=== PATIENT | male | born 1935 | race Caucasian/White ===

== ENCOUNTER → 2017-08-18 | Day surgery (SDC) | payer MEDICARE, OTHER ==
[~2017-08-18] VITALS: Ht 177.8 cm; Wt 94.2 kg
[~2017-08-18] MED LIST: AMLO2.5T PO; AMOX500C PO; BACITRACIN TOP OINT 15 GM TUBE ONE; BUPIVACAINE/EPINEPHRINE 0.25% 50 ML VIAL ONE; CHLORHEXIDINE GLUCONATE 2 % 1 PACK (2 CLOTHS) TOPICAL PRN; DO NOT ADM ANY ANTICOAGULANT DRUGS PRN; INSULIN HUMAN REGULAR 1,000 UNITS/10 ML VIAL SQ PRN; LACTATED RINGER'S 1000 ML IV PRN; LIDOCAINE HCL 1% PF 5 ML SYRINGE OTHER ONE; LIPI40TA PO; LOSA100T PO; METOPROLOL TARTRATE 25 MG TAB PO PRN; ONDANSETRON HCL 4 MG/2 ML VIAL IV PUSH ONE; PHENYLEPH/NS 1000 MCG/10 ML SYR IV ONE; POVIDONE IODINE 5% (ANTISEPSIS KIT) 4 APPLICATIONS EACH NARE PRN; PROPOFOL 200 MG/20 ML AMP IV ONE; PROT40TA PO; SODIUM CHLORID 0.9% 500 ML IV PRN; TAMS5CAP PO; TOPR50TA PO; ceFAZolin 1,000 MG/NS 100 ML IV SCH; ePHEDrine/NS 25 MG/5 ML SYRINGE IV ONE
[2017-08-18 13:25] VITALS: BP 127/72; PULSE 69; RESP 18; TEMP 97.7; O2SAT 95
--- NOTE | 2017-08-18 18:44 | EKG ---
Date Performed: 08/18/2017 Time Performed: 10:11:01 PTAGE: 82 years EKG: Sinus rhythm NORMAL ECG NO PREVIOUS TRACING DOCTOR: Luis M Grubbs Interpretating Date/Time 08/18/2017 18:41:31
--- NOTE | 2017-08-24 10:35 | PD.OP ---
Operative Report Date of Surgery: Aug 22, 2017 Preoperative Diagnosis: (1) Basal cell carcinoma of right ear Postoperative Diagnosis: (1) Basal cell carcinoma of right ear Procedure: Wide local excision of right auricular basal cell carcinoma, 12 mm (00477) Surgeon: Fabrizio Chung Apparel Sales Associate(s): . Operation and Findings: 82-year-old male who presented to clinic with biopsy-proven right auricular basal cell carcinoma. Risks benefits and alternative treatments discussed. All questions answered and patient and patient's expressed understanding. Patient elected to assume the risks of wide local excision of above. Informed consent was obtained. The surgical site was marked in the preoperative holding bay. The patient was given antibiotics on-call to the operating room. The patient was taken to the operating room. All pressure points were padded. A surgical timeout was performed. After the smooth induction of general anesthesia, the biopsy site was outlined with 4 mm margins. The surgical site was instilled with quarter percent Marcaine with epinephrine. The surgical site was prepped and draped in the usual sterile fashion. The lesion was excised according to the markings. This left a defect of 12 mm. Hemostasis was ensured. The lesion was marked for orientation, and sent to pathology. Frozen pathology showed negative margins. The wound was dressed with bacitracin Xeroform gauze dry gauze and a Roslyn dressing. The patient was awoken from anesthesia and arrived stable and doing well to the PACU. All needle sponge and instrument counts were correct 2. Fabrizio Chung MD Aug 24, 2017 10:35
== END | disposition home or self-care (01) ==
LOC: HSDC 09:22
PROVIDERS: ATTEND Student in an Organized Health Care Education/Training Program
DX: C44.212 Basal cell carcinoma of skin of right ear and external auricular canal (principal); I10 Essential (primary) hypertension; E78.5 Hyperlipidemia, unspecified
CPT/HCPCS: 00300; 11642; 88305; 88331; 93005; J0690; J2370; J2405

== ENCOUNTER → 2017-08-25 | Day surgery (SDC) | payer MEDICARE, OTHER ==
[~2017-08-25] VITALS: Ht 177.8 cm; Wt 93.0 kg
[~2017-08-25] MED LIST changes: +ACETAMINOPHEN 1000 MG/100 ML 100 ML IV ONE; +ACETAMINOPHEN/HYDROcodone 325 MG/5 MG TAB PO PRN; -BUPIVACAINE/EPINEPHRINE 0.25% 50 ML VIAL ONE; +BUPIVACAINE/EPINEPHRINE 0.75% PF 30 ML VIAL ONE; +DEXAMETHASONE SOD PHOS 4 MG/ML VIAL IV ONE; -INSULIN HUMAN REGULAR 1,000 UNITS/10 ML VIAL SQ PRN; +LIDOCAINE 1%/EPINEPHrine 1:100,000 SOLN 50 ML VIAL ONE; +MINERAL OIL 10 ML VIAL ONE; +NEOMYCIN/POLYMYXIN 1 ML G.U. IRRIGANT ONE; +ONDANSETRON HCL 4 MG/2 ML VIAL IV ONE; -ONDANSETRON HCL 4 MG/2 ML VIAL IV PUSH ONE
[2017-08-25 17:35] VITALS: BP 146/77; PULSE 74; RESP 18; TEMP 98.7; O2SAT 94
--- NOTE | 2017-08-30 19:19 | PD.OP ---
Operative Report Date of Surgery: Aug 25, 2017 Preoperative Diagnosis: (1) Ear wound Postoperative Diagnosis: (1) Ear wound Procedure: Full-thickness skin graft from right postauricular area to right triangular fossa ((40841) Surgeon: Fabrizio Chung [employer] Production Worker(s): . Operation and Findings: 82-year-old male who presented to clinic with a right ear wound involving the triangular fossa status post skin lesion wide local excision. Risks benefits and alternative treatments for closure of the wound were discussed. The patient elected to assume the risks of a full-thickness skin graft from the right postauricular region to the right triangular fossa. Informed consent was obtained. The surgical site was marked in the preoperative holding bay. Antibiotics were given on-call to the operating room. The patient was taken to the operating room. And all pressure points were padded. A surgical timeout was performed. After the smooth induction of general anesthesia the surgical sites were instilled with quarter percent Marcaine with epinephrine. The surgical site was prepped and draped in the usual sterile fashion. The right triangular fossa wound was freshened with a dry gauze. The wound measured roughly 16 mm. There were multiple areas of bare cartilage which had begun to desiccate. The cartilage within the wound was excised to allow the wound to receive a skin graft. Hemostasis was ensured using the bipolar cautery. Attention was then turned to the right postauricular region. An ellipse of skin with the short axis measuring 16 mm was excised. Hemostasis was ensured. The postauricular donor site was closed with a running 4-0 chromic in a locking fashion. The full-thickness skin graft was thinned appropriately of all hypo- dermal appendages. The graft was cut to shape and sutured in place using a running 5-0 plain. Circumferential 3-0 silk sutures were placed in an interrupted fashion around the wound. A tie-over bolster was then fashioned using these sutures and a cotton ball mineral oil Xeroform gauze and bacitracin. The surgical sites were cleaned. The postauricular site was dressed with bacitracin Xeroform gauze and dry gauze fluffs. A Ponce dressing was placed over the auricle. The patient was awoken from anesthesia and arrived stable and doing well to the PACU. All needle sponge and instrument counts were correct 2. Fabrizio Chung MD Aug 30, 2017 19:18
== END | disposition home or self-care (01) ==
LOC: HSDC 11:57
PROVIDERS: ATTEND Student in an Organized Health Care Education/Training Program
DX: Z48.1 Encounter for planned postprocedural wound closure (principal); C44.212 Basal cell carcinoma of skin of right ear and external auricular canal
CPT/HCPCS: 00300; 15260; J0131; J0690; J1100; J2370; J2405; J7120